=== PATIENT | female | born 1965 | race Two or more races ===

== ENCOUNTER 2018-12-30 18:49 | Emergency (ER) | payer OTHER, MEDICAID ==
[~2018-12-30] VITALS: Ht 162.6 cm; Wt 67.7 kg
[2018-12-30 18:50] VITALS: BP 127/61
[2018-12-30] MEDS ORDERED: DIAZEPAM 5 MG TABLET ONE (19:52)
[2018-12-30] MEDS ORDERED: KETOROLAC 30 MG/1 ML ONE (19:52)
[2018-12-30] MEDS ORDERED: KETOROLAC 30 MG/1 ML IM ONE (20:00)
[2018-12-30] MEDS ORDERED: DIAZEPAM 5 MG TABLET PO ONE (20:00)
== END 2018-12-30 21:01 | disposition home or self-care (01) ==
LOC: ED 20:45
DX: S39.012A Strain of muscle, fascia and tendon of lower back, initial encounter (principal); X58.XXXA Exposure to other specified factors, initial encounter; Y93.89 Activity, other specified; Y92.89 Other specified places as the place of occurrence of the external cause; Y99.8 Other external cause status
CPT/HCPCS: 96372; 99283; J1885